=== PATIENT | male | born 1995 | race Caucasian/White ===

== ENCOUNTER 2019-08-11 19:24 | Emergency (ER) | payer BC ==
[2019-08-11] MEDS ORDERED: Lidocaine 1% w/Epinephrine 1:100K 20 ML VIAL ONE (19:38)
[2019-08-11] MEDS ORDERED: Acetaminophen 500 MG TAB ONE (19:40)
[2019-08-11] MEDS ORDERED: Bacitracin Zinc Ointment 30 gm TUBE ONE (19:53)
[2019-08-11] MEDS ORDERED: Bacitracin 1 PK ONE (19:54)
[2019-08-11] MEDS ORDERED: Adacel (T-DAP) 0.5 ML SYRINGE ONE (19:57)
== END 2019-08-11 20:10 | disposition home or self-care (01) ==
LOC: SCSER 19:24
DX: S61.412A Laceration without foreign body of left hand, initial encounter (principal); W26.0XXA Contact with knife, initial encounter
CPT/HCPCS: 12001; 90471; 90715